=== PATIENT | female | born 1950 | race African-American/Black ===

== ENCOUNTER 2017-06-18 04:40 | Inpatient (IN) | payer MEDICARE, MEDICAID ==
[2017-06-18] VITALS (11 sets, daily range): BP systolic 119–175; BP diastolic 80–107
[~2017-06-18] VITALS: Ht 157.5 cm; Wt 23.6 kg
[~2017-06-18 04:40] MED LIST: ASPI-1158 PO; ATEN50TA; ATOR20TA65; CARV12.545 PO; CLON0.2T12 PO; CLOP75TA33; ISOS30TA6; LISI40TA4 PO
[2017-06-18] MEDS ORDERED: ALBUTEROL (0.083%) 2.5MG/3ML NEB HHN STA (04:59)
[2017-06-18] MEDS ORDERED: IPRATROPIUM BROMIDE (0.02%) 0.5MG/2.5ML NEB HHN STA (04:59)
[2017-06-18 05:30] LABS: BG BASE EXCESS -9.7 mmol/L (-2.0-2.0); BG CARBOXYHEMOGLOBIN 3.5 % (0.5-1.5); BG FRACTION INSPIRED OXYGEN 21; BG HCO3 ACT 13.4 mmol/L (22.0-26.0); BG METHEMOGLOBIN 0.4 % (0.0-1.5); BG OXYGEN SATURATION 88.6 % (92.0-98.5); BG OXYHEMOGLOBIN 85.1 % (94.0-97.0); BG PH 7.384 (7.350-7.450); BG PO2 54.8 mmHg (75.0-100.0); BG SAMPLE SITE RIGHT RADIAL; BG TOTAL HEMOGLOBIN 12.7 g/dL (12.0-18.0); BG VENT MODE ROOM AIR
[2017-06-18] MEDS ORDERED: CEFTRIAXONE 1 G PREMIX 50 ML IV ONE (05:30)
[2017-06-18] MEDS ORDERED: AZITHROMYCIN 500 MG in DEXT 5% WATER 250 ML IV ONE (05:30)
[2017-06-18 05:35] LABS: CHLORIDE 113 mEq/L (98-107); HEMATOCRIT. 37.3 % (36.0-48.0); HEMOGLOBIN. 12.6 g/dL (12.0-16.0); MEAN CORPUSCULAR VOLUME 91.9 fL (81.0-99.0); MEAN PLATELET VOLUME 9.1 fl (7.4-10.4); PLATELET 181 x1000/uL (130-400); RED BLOOD CELL COUNT 4.06 mill/uL (4.2-5.4); RED CELL DISTRIBUTION WIDTH 15.7 % (11.6-14.6)
[2017-06-18 05:36] LABS: INR 1.1; PROTHROMBIN TIME 11.1 sec (9.4-11.6)
[2017-06-18 06:47] LABS: PLATELET ESTIMATE NORMAL
[2017-06-18] MEDS ORDERED: IPRATROPIUM/ALBUTEROL 0.5-3(2.5)MG/3ML NEB HHN PRN (11:00)
[2017-06-18] MEDS ORDERED: LISINOPRIL 40MG TABLET PO SCH (11:30)
[2017-06-18] MEDS: LEVOFLOXACIN 250MG TABLET PO SCH (12:10)
[2017-06-18] MEDS: CLOPIDOGREL 75MG TABLET PO SCH (12:10)
[2017-06-18] MEDS ORDERED: LORAZEPAM 2MG/ML CPJ IV PRN (14:30)
[2017-06-18 14:51] LABS: CLARITY URINE CLEAR (CLEAR); COLOR URINE YELLOW (YELLOW); KETONES URINE NEGATIVE (NEGATIVE); LEUKOCYTE ESTERASE URINE TRACE (NEGATIVE); NITRITE URINE NEGATIVE (NEGATIVE); OCCULT BLOOD URINE NEGATIVE (NEGATIVE); PROTEIN URINE TRACE (NEGATIVE); SPECIFIC GRAVITY URINE 1.017 (1.005-1.030); UROBILINOGEN URINE 0.2 E.U./dL (0.2-1.0)
[2017-06-18 15:06] LABS: *AMPHETAMINES SCREEN URINE NEGATIVE (NEGATIVE); *BARBITURATES SCREEN URINE NEGATIVE (NEGATIVE); *BENZODIAZEPINES SCREEN URINE NEGATIVE (NEGATIVE); CANNABINOID URINE SCREEN NEGATIVE (NEGATIVE); METHADONE URINE SCREEN NEGATIVE (NEGATIVE); OPIATES URINE SCREEN NEGATIVE (NEGATIVE); PHENCYCLIDINE URINE SCREEN NEGATIVE (NEGATIVE)
[2017-06-18 15:07] LABS: *COCAINE SCREEN URINE PRESUMTIVE POSITIVE (NEGATIVE)
[2017-06-18] MEDS: FUROSEMIDE 40MG/4ML VIAL IVP SCH (15:22)
[2017-06-18] MEDS: ENOXAPARIN 40MG/0.4ML SYR SUBCUT SCH (15:22)
[2017-06-18] MEDS: MULTIVITAMINS,THER W-MINERALS TABLET PO SCH (15:23)
[2017-06-18] MEDS: THIAMINE HCL 100MG TABLET PO SCH (15:23)
[2017-06-18] MEDS: FOLIC ACID/VITAMIN B COMP W-C TABLET PO SCH (15:23)
[2017-06-18] MEDS ORDERED: ALBUMIN HUMAN 12.5G/250ML (5%) IV NR (16:00)
[2017-06-18] MEDS ORDERED: FUROSEMIDE 40MG/4ML VIAL IVP NR (16:15)
[2017-06-18] MEDS ORDERED: NICOTINE 21MG PATCH TD NR (17:00)
[2017-06-18] MEDS: ACETAMINOPHEN 325MG TABLET PO PRN (18:23)
[2017-06-18] MEDS: ATORVASTATIN CALCIUM 40MG TABLET PO SCH (20:25)
[2017-06-18] MEDS: IPRATROPIUM/ALBUTEROL 0.5-3(2.5)MG/3ML NEB HHN SCH (20:25)
[2017-06-18] MEDS: AMLODIPINE 2.5MG TABLET PO SCH (20:25)
[2017-06-18] MEDS: LISINOPRIL 10MG TABLET PO SCH (20:25)
[2017-06-18] MEDS: HYDROCODONE/ACETAMINOPHEN 5/325MG TABLET PO PRN (20:26)
[2017-06-18] MEDS: BUDESONIDE 0.5MG/2ML NEB HHN SCH (20:26)
[2017-06-19] VITALS (13 sets, daily range): BP systolic 110–189; BP diastolic 45–116
[2017-06-19] MEDS: IPRATROPIUM/ALBUTEROL 0.5-3(2.5)MG/3ML NEB HHN SCH ×4 (01:57→20:43)
[2017-06-19] MEDS: CLONIDINE 0.1MG TABLET PO PRN ×2 (02:35→11:25)
[2017-06-19 07:08] LABS: HEMATOCRIT. 39.7 % (36.0-48.0); HEMOGLOBIN. 13.1 g/dL (12.0-16.0); MEAN CORPUSCULAR HEMOGLOBIN 30.4 pg (28.0-32.0); MEAN CORPUSCULAR VOLUME 91.7 fL (81.0-99.0); MEAN PLATELET VOLUME 9.2 fl (7.4-10.4); PLATELET 164 x1000/uL (130-400); RED BLOOD CELL COUNT 4.33 mill/uL (4.2-5.4); RED CELL DISTRIBUTION WIDTH 15.9 % (11.6-14.6)
[2017-06-19] MEDS: BUDESONIDE 0.5MG/2ML NEB HHN SCH ×2 (08:16→20:47)
[2017-06-19] MEDS: FUROSEMIDE 40MG/4ML VIAL IVP SCH (08:52)
[2017-06-19] MEDS: AMLODIPINE 2.5MG TABLET PO SCH (08:53)
[2017-06-19] MEDS: THIAMINE HCL 100MG TABLET PO SCH (08:54)
[2017-06-19] MEDS: LISINOPRIL 10MG TABLET PO SCH (08:54)
[2017-06-19] MEDS: CLOPIDOGREL 75MG TABLET PO SCH (08:54)
[2017-06-19] MEDS: MULTIVITAMINS,THER W-MINERALS TABLET PO SCH (08:54)
[2017-06-19] MEDS ORDERED: FUROSEMIDE 40MG TABLET PO SCH (09:00)
[2017-06-19 09:08] LABS: PLATELET ESTIMATE NORMAL
[2017-06-19] MEDS: FOLIC ACID/VITAMIN B COMP W-C TABLET PO SCH (11:17)
[2017-06-19] MEDS: NICOTINE 21MG PATCH TD SCH (11:17)
[2017-06-19] MEDS: HYDRALAZINE HCL 25MG TABLET PO SCH ×2 (13:18→21:50)
[2017-06-19] MEDS ORDERED: HYDRALAZINE HCL 25MG TABLET PO SCH (14:00)
[2017-06-19] MEDS: ACETAMINOPHEN 325MG TABLET PO PRN (15:22)
[2017-06-19] MEDS: ENOXAPARIN 40MG/0.4ML SYR SUBCUT SCH (15:24)
[2017-06-19] MEDS: ATORVASTATIN CALCIUM 40MG TABLET PO SCH (20:39)
[2017-06-19] MEDS: AMLODIPINE 5MG TABLET PO SCH (20:39)
[2017-06-19] MEDS: LISINOPRIL 20MG TABLET PO SCH (20:39)
[2017-06-20] VITALS (15 sets, daily range): BP systolic 126–167; BP diastolic 63–117
[2017-06-20] MEDS: IPRATROPIUM/ALBUTEROL 0.5-3(2.5)MG/3ML NEB HHN SCH ×4 (02:25→20:26)
[2017-06-20] MEDS: HYDRALAZINE HCL 25MG TABLET PO SCH ×3 (05:34→20:49)
[2017-06-20 06:55] LABS: HEMATOCRIT. 43.4 % (36.0-48.0); HEMOGLOBIN. 14.8 g/dL (12.0-16.0); MEAN CORPUSCULAR VOLUME 91.1 fL (81.0-99.0); MEAN PLATELET VOLUME 9.7 fl (7.4-10.4); PLATELET 174 x1000/uL (130-400); RED BLOOD CELL COUNT 4.76 mill/uL (4.2-5.4); RED CELL DISTRIBUTION WIDTH 16.2 % (11.6-14.6)
[2017-06-20 06:59] LABS: CHLORIDE 114 mEq/L (98-107)
[2017-06-20] MEDS: BUDESONIDE 0.5MG/2ML NEB HHN SCH ×2 (07:52→20:26)
[2017-06-20] MEDS: LISINOPRIL 20MG TABLET PO SCH ×2 (08:45→20:49)
[2017-06-20] MEDS: AMLODIPINE 5MG TABLET PO SCH (08:45)
[2017-06-20] MEDS: FOLIC ACID/VITAMIN B COMP W-C TABLET PO SCH (08:45)
[2017-06-20] MEDS: MULTIVITAMINS,THER W-MINERALS TABLET PO SCH (08:45)
[2017-06-20] MEDS: THIAMINE HCL 100MG TABLET PO SCH (08:45)
[2017-06-20] MEDS: FUROSEMIDE 40MG/4ML VIAL IVP SCH (08:45)
[2017-06-20] MEDS: CLOPIDOGREL 75MG TABLET PO SCH (08:46)
[2017-06-20] MEDS: NICOTINE 21MG PATCH TD SCH (08:46)
[2017-06-20] MEDS: HYDROCODONE/ACETAMINOPHEN 5/325MG TABLET PO PRN ×3 (09:01→20:49)
[2017-06-20 10:27] LABS: PLATELET ESTIMATE NORMAL
[2017-06-20] MEDS: LEVOFLOXACIN 250MG TABLET PO SCH (11:57)
[2017-06-20] MEDS: ENOXAPARIN 30MG/0.3ML SYR SUBCUT SCH (16:48)
[2017-06-20] MEDS ORDERED: KCL 20MEQ/100ML PREMIX 100 ML IV SCH (18:00)
[2017-06-20] MEDS: CLONIDINE 0.1MG TABLET PO PRN (18:18)
[2017-06-20] MEDS: NIFEDIPINE XL 60MG TAB PO SCH (18:18)
[2017-06-20] MEDS: ATORVASTATIN CALCIUM 40MG TABLET PO SCH (20:49)
[2017-06-21] VITALS (14 sets, daily range): BP systolic 110–187; BP diastolic 37–116
[2017-06-21] MEDS: IPRATROPIUM/ALBUTEROL 0.5-3(2.5)MG/3ML NEB HHN SCH ×4 (02:11→19:31)
[2017-06-21] MEDS: HYDRALAZINE HCL 25MG TABLET PO SCH ×3 (05:59→22:00)
[2017-06-21] MEDS: CLONIDINE 0.1MG TABLET PO PRN (06:15)
[2017-06-21 07:02] LABS: HEMATOCRIT. 43.7 % (36.0-48.0); HEMOGLOBIN. 14.6 g/dL (12.0-16.0); MEAN CORPUSCULAR HEMOGLOBIN 30.8 pg (28.0-32.0); MEAN CORPUSCULAR VOLUME 91.8 fL (81.0-99.0); MEAN PLATELET VOLUME 9.7 fl (7.4-10.4); PLATELET 162 x1000/uL (130-400); RED BLOOD CELL COUNT 4.76 mill/uL (4.2-5.4); RED CELL DISTRIBUTION WIDTH 16.2 % (11.6-14.6)
[2017-06-21 07:51] LABS: CHLORIDE 115 mEq/L (98-107)
[2017-06-21 07:53] LABS: PLATELET ESTIMATE NORMAL
[2017-06-21] MEDS: BUDESONIDE 0.5MG/2ML NEB HHN SCH (07:56)
[2017-06-21] MEDS: NICOTINE 21MG PATCH TD SCH (09:02)
[2017-06-21] MEDS: THIAMINE HCL 100MG TABLET PO SCH (09:02)
[2017-06-21] MEDS: FUROSEMIDE 40MG/4ML VIAL IVP SCH (09:02)
[2017-06-21] MEDS: MULTIVITAMINS,THER W-MINERALS TABLET PO SCH (09:03)
[2017-06-21] MEDS: NIFEDIPINE XL 60MG TAB PO SCH (09:03)
[2017-06-21] MEDS: FOLIC ACID/VITAMIN B COMP W-C TABLET PO SCH (09:04)
[2017-06-21] MEDS: LISINOPRIL 20MG TABLET PO SCH ×2 (09:04→20:44)
[2017-06-21] MEDS: CLOPIDOGREL 75MG TABLET PO SCH (09:09)
[2017-06-21] MEDS: ENOXAPARIN 30MG/0.3ML SYR SUBCUT SCH (14:39)
[2017-06-21] MEDS: ATORVASTATIN CALCIUM 40MG TABLET PO SCH (20:44)
[2017-06-21] MEDS: HYDROCODONE/ACETAMINOPHEN 5/325MG TABLET PO PRN (21:27)
[2017-06-22] VITALS (12 sets, daily range): BP systolic 106–155; BP diastolic 71–96
[2017-06-22] MEDS: CLONIDINE 0.1MG TABLET PO PRN (00:39)
[2017-06-22] MEDS: IPRATROPIUM/ALBUTEROL 0.5-3(2.5)MG/3ML NEB HHN SCH ×4 (02:04→20:58)
[2017-06-22] MEDS: HYDRALAZINE HCL 25MG TABLET PO SCH ×3 (05:43→22:03)
[2017-06-22] MEDS: MULTIVITAMINS,THER W-MINERALS TABLET PO SCH (10:32)
[2017-06-22] MEDS: THIAMINE HCL 100MG TABLET PO SCH (10:32)
[2017-06-22] MEDS: FOLIC ACID/VITAMIN B COMP W-C TABLET PO SCH (10:32)
[2017-06-22] MEDS: NICOTINE 21MG PATCH TD SCH (10:32)
[2017-06-22] MEDS: CLOPIDOGREL 75MG TABLET PO SCH (10:32)
[2017-06-22] MEDS: NIFEDIPINE XL 60MG TAB PO SCH (10:55)
[2017-06-22] MEDS: FUROSEMIDE 40MG/4ML VIAL IVP SCH (10:55)
[2017-06-22] MEDS: LISINOPRIL 20MG TABLET PO SCH ×2 (10:56→21:25)
[2017-06-22] MEDS: LEVOFLOXACIN 250MG TABLET PO SCH (11:29)
[2017-06-22] MEDS: HYDROCODONE/ACETAMINOPHEN 5/325MG TABLET PO PRN ×2 (13:32→21:30)
[2017-06-22] MEDS: ENOXAPARIN 30MG/0.3ML SYR SUBCUT SCH (15:28)
[2017-06-22] MEDS: ATORVASTATIN CALCIUM 40MG TABLET PO SCH (21:55)
[2017-06-23] VITALS (12 sets, daily range): BP systolic 97–148; BP diastolic 57–117
[2017-06-23] MEDS: IPRATROPIUM/ALBUTEROL 0.5-3(2.5)MG/3ML NEB HHN SCH ×3 (01:47→13:48)
[2017-06-23] MEDS: HYDRALAZINE HCL 25MG TABLET PO SCH ×2 (06:38→06:39)
[2017-06-23 06:45] LABS: HEMATOCRIT 46.5 % (36.0-48.0); HEMOGLOBIN 15.7 g/dL (12.0-16.0); MEAN CORPUSCULAR VOLUME 91.7 fL (81.0-99.0); PLATELET 148 x1000/uL (130-400); RED BLOOD CELL COUNT 5.07 mill/uL (4.2-5.4); RED CELL DISTRIBUTION WIDTH 16.2 % (11.6-14.6)
[2017-06-23] MEDS: NIFEDIPINE XL 60MG TAB PO SCH (08:33)
[2017-06-23] MEDS: CLOPIDOGREL 75MG TABLET PO SCH (08:33)
[2017-06-23] MEDS: FOLIC ACID/VITAMIN B COMP W-C TABLET PO SCH (08:33)
[2017-06-23] MEDS: THIAMINE HCL 100MG TABLET PO SCH (08:33)
[2017-06-23] MEDS: MULTIVITAMINS,THER W-MINERALS TABLET PO SCH (08:33)
[2017-06-23] MEDS: LISINOPRIL 20MG TABLET PO SCH (08:33)
[2017-06-23] MEDS: HYDROCODONE/ACETAMINOPHEN 5/325MG TABLET PO PRN (08:34)
[2017-06-23] MEDS: NICOTINE 21MG PATCH TD SCH (08:38)
[2017-06-23] MEDS ORDERED: FUROSEMIDE 20MG TABLET PO SCH (09:00)
[2017-06-23] MEDS: ENOXAPARIN 30MG/0.3ML SYR SUBCUT SCH (14:21)
[2017-06-23] MEDS: ACETAMINOPHEN 325MG TABLET PO PRN (14:22)
== END 2017-06-23 17:50 | disposition home health service (06) | DRG 291 ==
LOC: ER 04:40 → 5EST 06:03 → ENRESERV 07:37 → 5EST 18:28
PROVIDERS: ADMIT Internal Medicine; ATTEND Internal Medicine
DX: I11.0 Hypertensive heart disease with heart failure (principal); J96.01 Acute respiratory failure with hypoxia; E44.0 Moderate protein-calorie malnutrition; J18.9 Pneumonia, unspecified organism; I42.0 Dilated cardiomyopathy; D72.1 Eosinophilia; J44.1 Chronic obstructive pulmonary disease with (acute) exacerbation; N39.0 Urinary tract infection, site not specified; J44.0 Chronic obstructive pulmonary disease with (acute) lower respiratory infection; Z68.1 Body mass index [BMI] 19.9 or less, adult; F14.10 Cocaine abuse, uncomplicated; F17.210 Nicotine dependence, cigarettes, uncomplicated; I50.43 Acute on chronic combined systolic (congestive) and diastolic (congestive) heart failure; Z86.73 Personal history of transient ischemic attack (TIA), and cerebral infarction without residual deficits; Z91.19 Patient's noncompliance with other medical treatment and regimen; Z95.810 Presence of automatic (implantable) cardiac defibrillator; Z79.82 Long term (current) use of aspirin; Z79.899 Other long term (current) drug therapy; Z72.89 Other problems related to lifestyle
CPT/HCPCS: 36415; 36600; 71045; 80048; 80053; 80305; 81003; 82375; 82805; 83036; 83605; 83735; 83880; 84484; 85025; 85027; 85610; 87040; 87804; 93005; 93306; 94640; 96365; 96368; 97116; 97163; 99291; J0456; J0696; J1650; J1940; J3480; J7050; J7060; J7611; J7620; J7626; P9041

== ENCOUNTER 2018-04-15 14:28 | Inpatient (IN) | payer MEDICARE, MEDICAID ==
[~2018-04-15] VITALS: Ht 162.6 cm; Wt 48.1 kg
[2018-04-15] MEDS ORDERED: IPRATROPIUM BROMIDE (0.02%) 0.5MG/2.5ML NEB HHN STA (14:34)
[2018-04-15] MEDS ORDERED: ALBUTEROL (0.083%) 2.5MG/3ML NEB HHN STA (14:34)
[2018-04-15] MEDS ORDERED: METHYLPREDNISOLONE SOD SUCC 125 MG/2 ML VIAL IV STA (14:34)
[2018-04-15 15:00] LABS: BASOPHILS % 0.6 % (0.0-2.0); EOSINOPHILS % 0.9 % (0.0-5.0); HEMATOCRIT. 44.1 % (36.0-48.0); HEMOGLOBIN. 14.1 g/dL (12.0-16.0); LYMPHOCYTES % 34.6 % (20.0-50.0); MEAN CORPUSCULAR HEMOGLOBIN 30.7 pg (28.0-32.0); MEAN PLATELET VOLUME 10.5 fl (7.4-10.4); MONOCYTES % 6.5 % (2.0-8.0); NEUTROPHILS % 57.4 % (40.0-76.0); PLATELET 161 x1000/uL (130-400); RED BLOOD CELL COUNT 4.59 mill/uL (4.2-5.4); RED CELL DISTRIBUTION WIDTH 19.2 % (11.6-14.6)
[2018-04-15 15:08] LABS: CHLORIDE 119 mEq/L (98-107)
[2018-04-15 15:17] LABS: BG BASE EXCESS -8.8 mmol/L (-2.0-2.0); BG DEOXYHEMOGLOBIN 2.5 % (0.0-5.0); BG FRACTION INSPIRED OXYGEN 50; BG HCO3 ACT 15.7 mmol/L (22.0-26.0); BG METHEMOGLOBIN 0.4 % (0.0-1.5); BG OXYGEN SATURATION 97.5 % (92.0-98.5); BG OXYHEMOGLOBIN 96.1 % (94.0-97.0); BG PCO2 30.3 mmHg (35.0-45.0); BG PH 7.333 (7.350-7.450); BG PO2 109.4 mmHg (75.0-100.0); BG SAMPLE SITE RIGHT RADIAL; BG TOTAL HEMOGLOBIN 13.9 g/dL (12.0-18.0)
[2018-04-15] MEDS ORDERED: FUROSEMIDE 40MG/4ML VIAL IV ONE (15:30)
[2018-04-15] MEDS ORDERED: ASPIRIN 81MG TABLET PO ONE (15:30)
[2018-04-15] MEDS ORDERED: DIPHENHYDRAMINE 50MG/ML VIAL IV PRN (18:00)
[2018-04-15] MEDS ORDERED: HYDROCODONE/ACETAMINOPHEN 5/325MG TABLET PO PRN (18:00)
[2018-04-15] MEDS ORDERED: NA PHOS,M-B/NA PHOS,DI-BA ENEMA 118ML PR PRN (18:00)
[2018-04-15] MEDS ORDERED: ACETAMINOPHEN 325MG TABLET PO PRN (18:00)
[2018-04-15] MEDS ORDERED: ACETAMINOPHEN 650MG SUPP PR PRN (18:00)
[2018-04-15] MEDS ORDERED: DOCUSATE SODIUM 100MG CAPSULE PO PRN (18:00)
[2018-04-15] MEDS ORDERED: ONDANSETRON HCL 4MG/2ML INJ IV PRN (18:00)
[2018-04-15] MEDS ORDERED: LORAZEPAM 0.5MG TABLET PO PRN (18:00)
[2018-04-15] MEDS ORDERED: AMLODIPINE 5MG TABLET PO SCH (18:00)
[2018-04-15] MEDS ORDERED: IPRATROPIUM/ALBUTEROL 0.5-3(2.5)MG/3ML NEB INH PRN (18:00)
[2018-04-15] MEDS ORDERED: GUAIFENESIN 200MG/10ML SUGAR FREE UDC PO PRN (18:00)
[2018-04-15] MEDS ORDERED: MAGNESIUM/ALUMINUM HYDROXIDE/SIMETHICONE 30ML UDC PO PRN (18:00)
[2018-04-15] MEDS ORDERED: CLONIDINE 0.1MG TABLET PO PRN (18:00)
[2018-04-15 20:00] VITALS: BP 164/108
[2018-04-15] MEDS: CARVEDILOL 12.5MG TABLET PO SCH (20:17)
[2018-04-15] MEDS: METHYLPREDNISOLONE SOD SUCC 40 MG/ML VIAL IV SCH (20:18)
[2018-04-15] MEDS: ENOXAPARIN 40MG/0.4ML SYR SUBCUT SCH (20:18)
[2018-04-15] MEDS ORDERED: LEVOFLOXACIN 500MG PREMIX 100 ML IV SCH (21:00)
[2018-04-15] MEDS: IPRATROPIUM/ALBUTEROL 0.5-3(2.5)MG/3ML NEB INH SCH (21:28)
[2018-04-16] VITALS: BP 165/105
[2018-04-16] MEDS: IPRATROPIUM/ALBUTEROL 0.5-3(2.5)MG/3ML NEB INH SCH ×6 (01:13→21:38)
[2018-04-16 03:10] LABS: CLARITY URINE CLOUDY (CLEAR); COLOR URINE YELLOW (YELLOW); KETONES URINE NEGATIVE (NEGATIVE); LEUKOCYTE ESTERASE URINE TRACE (NEGATIVE); NITRITE URINE NEGATIVE (NEGATIVE); OCCULT BLOOD URINE 3+ (NEGATIVE); PROTEIN URINE 1+ (NEGATIVE); SPECIFIC GRAVITY URINE 1.015 (1.005-1.030); UROBILINOGEN URINE 0.2 E.U./dL (0.2-1.0)
[2018-04-16 03:11] LABS: *AMPHETAMINES SCREEN URINE NEGATIVE (NEGATIVE); *BARBITURATES SCREEN URINE NEGATIVE (NEGATIVE); *BENZODIAZEPINES SCREEN URINE NEGATIVE (NEGATIVE); *COCAINE SCREEN URINE PRESUMTIVE POSITIVE (NEGATIVE); METHADONE URINE SCREEN NEGATIVE (NEGATIVE); OPIATES URINE SCREEN NEGATIVE (NEGATIVE); PHENCYCLIDINE URINE SCREEN NEGATIVE (NEGATIVE)
[2018-04-16 03:12] LABS: CANNABINOID URINE SCREEN NEGATIVE (NEGATIVE)
[2018-04-16 04:00] VITALS: BP 143/102
[2018-04-16] MEDS: METHYLPREDNISOLONE SOD SUCC 40 MG/ML VIAL IV SCH ×3 (05:19→21:50)
[2018-04-16 07:59] LABS: BASOPHILS % 0.6 % (0.0-2.0); HEMATOCRIT. 42.1 % (36.0-48.0); HEMOGLOBIN. 13.5 g/dL (12.0-16.0); LYMPHOCYTES % 27.5 % (20.0-50.0); MEAN CORPUSCULAR HEMOGLOBIN 30.4 pg (28.0-32.0); MEAN CORPUSCULAR VOLUME 94.9 fL (81.0-99.0); MEAN PLATELET VOLUME 10.7 fl (7.4-10.4); MONOCYTES % 8.1 % (2.0-8.0); NEUTROPHILS % 63.8 % (40.0-76.0); PLATELET 141 x1000/uL (130-400); RED BLOOD CELL COUNT 4.43 mill/uL (4.2-5.4); RED CELL DISTRIBUTION WIDTH 18.5 % (11.6-14.6)
[2018-04-16 08:00] VITALS: BP 139/100
[2018-04-16 08:06] LABS: CHLORIDE 120 mEq/L (98-107)
[2018-04-16 08:14] LABS: LDL CHOLESTEROL 83 mg/dL (5-100)
[2018-04-16 08:16] LABS: HDL CHOLESTEROL 53 mg/dL (40-59); T4 FREE 1.62 ng/dL (0.76-1.46)
[2018-04-16] MEDS ORDERED: FUROSEMIDE 40MG/4ML VIAL IV SCH (09:00)
[2018-04-16] MEDS: CLOPIDOGREL 75MG TABLET PO SCH (09:46)
[2018-04-16] MEDS: CARVEDILOL 12.5MG TABLET PO SCH ×2 (09:46→21:49)
[2018-04-16] MEDS: ASPIRIN 81MG EC TABLET PO SCH (09:46)
[2018-04-16] MEDS: AMLODIPINE 10MG TABLET PO SCH (09:47)
[2018-04-16 12:00] VITALS: BP 122/86
[2018-04-16] MEDS: DEXTROSE 5% WATER 1,000 ML IV SCH (14:57)
[2018-04-16 16:00] VITALS: BP 123/96
[2018-04-16 20:30] VITALS: BP 140/102
[2018-04-16] MEDS ORDERED: LEVOFLOXACIN 250MG PREMIX 50 ML IV SCH (21:00)
[2018-04-16] MEDS: CLONIDINE 0.2MG TABLET PO PRN ×2 (21:49)
[2018-04-16] MEDS: ENOXAPARIN 40MG/0.4ML SYR SUBCUT SCH (21:49)
[2018-04-17 00:47] VITALS: BP 125/94
[2018-04-17] MEDS: DEXTROSE 5% WATER 1,000 ML IV SCH (01:05)
[2018-04-17] MEDS: IPRATROPIUM/ALBUTEROL 0.5-3(2.5)MG/3ML NEB INH SCH ×2 (02:10→10:40)
[2018-04-17 04:51] VITALS: BP 117/90
[2018-04-17] MEDS: METHYLPREDNISOLONE SOD SUCC 40 MG/ML VIAL IV SCH ×2 (05:57→13:47)
[2018-04-17 07:26] LABS: HEMATOCRIT 40.8 % (36.0-48.0); HEMOGLOBIN 13.3 g/dL (12.0-16.0); MEAN CORPUSCULAR VOLUME 95.3 fL (81.0-99.0); PLATELET 122 x1000/uL (130-400); RED BLOOD CELL COUNT 4.29 mill/uL (4.2-5.4); RED CELL DISTRIBUTION WIDTH 18.2 % (11.6-14.6)
[2018-04-17 08:00] VITALS: BP 91/73
[2018-04-17] MEDS: AMLODIPINE 10MG TABLET PO SCH (09:00)
[2018-04-17] MEDS: CARVEDILOL 12.5MG TABLET PO SCH (09:09)
[2018-04-17] MEDS: CLOPIDOGREL 75MG TABLET PO SCH (09:09)
[2018-04-17] MEDS: ASPIRIN 81MG EC TABLET PO SCH (09:09)
[2018-04-17 12:00] VITALS: BP 128/94
[2018-04-17 15:08] VITALS: BP 117/65
[2018-04-17] MEDS ORDERED: ENOXAPARIN 30MG/0.3ML SYR SUBCUT SCH (21:00)
== END 2018-04-17 16:00 | disposition home health service (06) | DRG 291 ==
LOC: ER 14:28 → ENRESERV 15:28 → 5WST 15:33 → EDBEDREQSVC 15:35 → EDBEDREQ 15:35 → EDBEDREQTM 15:35 → EDBEDREQ 15:36
PROVIDERS: ADMIT Internal Medicine; ATTEND Internal Medicine
DX: I11.0 Hypertensive heart disease with heart failure (principal); J18.9 Pneumonia, unspecified organism; J44.0 Chronic obstructive pulmonary disease with (acute) lower respiratory infection; N39.0 Urinary tract infection, site not specified; J44.1 Chronic obstructive pulmonary disease with (acute) exacerbation; J11.1 Influenza due to unidentified influenza virus with other respiratory manifestations; I50.43 Acute on chronic combined systolic (congestive) and diastolic (congestive) heart failure; E87.5 Hyperkalemia; F17.210 Nicotine dependence, cigarettes, uncomplicated; E86.0 Dehydration; R26.9 Unspecified abnormalities of gait and mobility; Z86.73 Personal history of transient ischemic attack (TIA), and cerebral infarction without residual deficits; Z95.810 Presence of automatic (implantable) cardiac defibrillator; Z99.81 Dependence on supplemental oxygen
CPT/HCPCS: 36415; 36600; 71045; 80048; 80061; 80305; 82375; 82805; 83880; 84439; 84443; 84484; 85027; 87804; 93005; 93306; 93970; 94640; 96374; 96375; 97162; 99291; J1650; J1940; J1956; J2920; J2930; J7050; J7070; J7611; J7620; A4315

== ENCOUNTER 2019-06-15 06:37 | Inpatient (IN) | payer MEDICARE, MEDICAID ==
[~2019-06-15] VITALS: Ht 165.1 cm; Wt 48.6 kg
[2019-06-15] MEDS ORDERED: IPRATROPIUM BROMIDE (0.02%) 0.5MG/2.5ML NEB HHN STA (06:50)
[2019-06-15] MEDS ORDERED: METHYLPREDNISOLONE SOD SUCC 125 MG/2 ML VIAL IV STA (06:50)
[2019-06-15] MEDS ORDERED: ALBUTEROL (0.083%) 2.5MG/3ML NEB HHN STA (06:50)
[2019-06-15 07:19] LABS: BASOPHILS % 1.7 % (0.0-2.0); EOSINOPHILS % 1.8 % (0.0-5.0); HEMATOCRIT. 38.6 % (36.0-48.0); HEMOGLOBIN. 11.9 g/dL (12.0-16.0); MEAN CORPUSCULAR HEMOGLOBIN 25.8 pg (28.0-32.0); MEAN CORPUSCULAR VOLUME 84.1 fL (81.0-99.0); MEAN PLATELET VOLUME 10.4 fl (7.4-10.4); MONOCYTES % 12.2 % (2.0-8.0); NEUTROPHILS % 54.3 % (40.0-76.0); PLATELET 208 x1000/uL (130-400); RED BLOOD CELL COUNT 4.59 mill/uL (4.2-5.4); RED CELL DISTRIBUTION WIDTH 21.2 % (11.6-14.6)
[2019-06-15 07:24] LABS: CHLORIDE 111 mEq/L (98-107)
[2019-06-15] MEDS ORDERED: LEVOFLOXACIN 750MG PREMIX 150 ML IV ONE (08:15)
[2019-06-15 09:00] LABS: BG BASE EXCESS -6.5 mmol/L (-2.0-2.0); BG CARBOXYHEMOGLOBIN 0.4 % (0.5-1.5); BG DEOXYHEMOGLOBIN 5.1 % (0.0-5.0); BG FRACTION INSPIRED OXYGEN 21; BG HCO3 ACT 17.1 mmol/L (22.0-26.0); BG METHEMOGLOBIN 0.4 % (0.0-1.5); BG OXYGEN SATURATION 94.9 % (92.0-98.5); BG OXYHEMOGLOBIN 94.1 % (94.0-97.0); BG PCO2 28.3 mmHg (35.0-45.0); BG PH 7.398 (7.350-7.450); BG PO2 78.7 mmHg (75.0-100.0); BG SAMPLE SITE RIGHT RADIAL; BG TOTAL HEMOGLOBIN 11.8 g/dL (12.0-18.0); BG VENT MODE ROOM AIR
[2019-06-15] MEDS ORDERED: NA PHOS,M-B/NA PHOS,DI-BA ENEMA 118ML PR PRN (11:30)
[2019-06-15] MEDS ORDERED: LORAZEPAM 0.5MG TABLET PO PRN (11:30)
[2019-06-15] MEDS ORDERED: ONDANSETRON HCL 4MG/2ML INJ IV PRN (11:30)
[2019-06-15] MEDS ORDERED: DOCUSATE SODIUM 100MG CAPSULE PO PRN (11:30)
[2019-06-15] MEDS ORDERED: HYDROCODONE/ACETAMINOPHEN 5/325MG TABLET PO PRN (11:30)
[2019-06-15] MEDS ORDERED: DIPHENHYDRAMINE 50MG/ML VIAL IV PRN (11:30)
[2019-06-15] MEDS ORDERED: ACETAMINOPHEN 325MG TABLET PO PRN (11:30)
[2019-06-15] MEDS ORDERED: IPRATROPIUM/ALBUTEROL 0.5-3(2.5)MG/3ML NEB NEB SCH (11:30)
[2019-06-15] MEDS ORDERED: IPRATROPIUM/ALBUTEROL 0.5-3(2.5)MG/3ML NEB NEB PRN (11:30)
[2019-06-15] MEDS ORDERED: GUAIFENESIN 200MG/10ML SUGAR FREE UDC PO PRN (11:30)
[2019-06-15] MEDS ORDERED: ACETAMINOPHEN 650MG SUPP PR PRN (11:30)
[2019-06-15] MEDS ORDERED: AZTREONAM 500 MG in DEXTROSE 5% WATER 50 ML IV SCH ×2 (11:45→20:00)
[2019-06-15 12:28] LABS: D-DIMER 0.99 mg/L FEU (<0.50)
[2019-06-15 12:50] LABS: HEPATITIS B SURFACE ANTIGEN NEGATIVE
[2019-06-15 13:20] LABS: HEPATITIS A AB IGM NEGATIVE (NEGATIVE)
[2019-06-15 13:42] LABS: CLARITY URINE CLEAR (CLEAR); COLOR URINE YELLOW (YELLOW); KETONES URINE NEGATIVE (NEGATIVE); LEUKOCYTE ESTERASE URINE TRACE (NEGATIVE); NITRITE URINE NEGATIVE (NEGATIVE); OCCULT BLOOD URINE NEGATIVE (NEGATIVE); PH URINE 5.5 (4.5-8.0); PROTEIN URINE TRACE (NEGATIVE); UROBILINOGEN URINE 0.2 E.U./dL (0.2-1.0)
[2019-06-15 14:23] LABS: *AMPHETAMINES SCREEN URINE NEGATIVE (NEGATIVE); *BARBITURATES SCREEN URINE NEGATIVE (NEGATIVE); CANNABINOID URINE SCREEN NEGATIVE (NEGATIVE); METHADONE URINE SCREEN NEGATIVE (NEGATIVE); OPIATES URINE SCREEN NEGATIVE (NEGATIVE); PHENCYCLIDINE URINE SCREEN NEGATIVE (NEGATIVE)
[2019-06-15 14:24] LABS: *BENZODIAZEPINES SCREEN URINE NEGATIVE (NEGATIVE); *COCAINE SCREEN URINE NEGATIVE (NEGATIVE)
[2019-06-15] MEDS ORDERED: METRONIDAZOLE 500MG TABLET PO SCH ×2 (14:30→22:00)
[2019-06-15 18:02] VITALS: BP 156/120
[2019-06-15 18:34] LABS: BG BASE EXCESS -6.6 mmol/L (-2.0-2.0); BG CARBOXYHEMOGLOBIN 0.5 % (0.5-1.5); BG DEOXYHEMOGLOBIN 3.4 % (0.0-5.0); BG FRACTION INSPIRED OXYGEN 28; BG HCO3 ACT 16.9 mmol/L (22.0-26.0); BG METHEMOGLOBIN 0.3 % (0.0-1.5); BG OXYGEN SATURATION 96.6 % (92.0-98.5); BG OXYHEMOGLOBIN 95.8 % (94.0-97.0); BG PCO2 28.3 mmHg (35.0-45.0); BG PH 7.395 (7.350-7.450); BG PO2 89.3 mmHg (75.0-100.0); BG SAMPLE SITE RIGHT RADIAL; BG TOTAL HEMOGLOBIN 12.4 g/dL (12.0-18.0); BG VENT MODE NASAL CANNULA
[2019-06-15] MEDS ORDERED: CEFTRIAXONE 1 G PREMIX 50 ML IV SCH (20:00)
[2019-06-15] MEDS: ENOXAPARIN 40MG/0.4ML SYR SUBCUT SCH ×2 (20:17→23:51)
[2019-06-15] MEDS: FAMOTIDINE 20MG TABLET PO SCH ×2 (20:17→23:51)
[2019-06-15 21:59] VITALS: BP 154/118
[2019-06-15] MEDS: METRONIDAZOLE 500MG TABLET PO SCH (23:56)
[2019-06-16] VITALS (43 sets, daily range): BP systolic 92–188; BP diastolic 62–134
[2019-06-16 00:29] LABS: CREATINE KINASE MB FRACTION 3.4 ng/mL (0.5-3.6)
[2019-06-16] MEDS: METRONIDAZOLE 500MG TABLET PO SCH ×3 (06:00→21:11)
[2019-06-16] MEDS ORDERED: NOREPINEPHRINE 8 MG in DEXT 5% WATER 242 ML IV PRN (14:00)
[2019-06-16] MEDS ORDERED: PIPERACILLIN/TAZOBACTAM 3.375 G in DEXT 5% WATER 100 ML IV SCH (15:30)
[2019-06-16 15:42] LABS: BG BASE EXCESS -9.1 mmol/L (-2.0-2.0); BG CARBOXYHEMOGLOBIN 0.3 % (0.5-1.5); BG DEOXYHEMOGLOBIN 0.3 % (0.0-5.0); BG FRACTION INSPIRED OXYGEN 100; BG HCO3 ACT 17.4 mmol/L (22.0-26.0); BG METHEMOGLOBIN 0.3 % (0.0-1.5); BG OXYGEN SATURATION 99.7 % (92.0-98.5); BG OXYHEMOGLOBIN 99.1 % (94.0-97.0); BG PCO2 40.1 mmHg (35.0-45.0); BG PH 7.256 (7.350-7.450); BG PO2 367.8 mmHg (75.0-100.0); BG SAMPLE SITE RIGHT BRACHIAL; BG TIDAL VOLUME(mL) 450 mL; BG TOTAL HEMOGLOBIN 12.2 g/dL (12.0-18.0); BG VENT MODE VENT - A/C; BG VENT RATE 16 set
[2019-06-16] MEDS ORDERED: SODIUM BICARBONATE 8.4% 1 MEQ/ML 50ML SYR IV ONE (16:00)
[2019-06-16] MEDS: METHYLPREDNISOLONE SOD SUCC 40 MG/ML VIAL IV SCH (16:00)
[2019-06-16] MEDS ORDERED: VANCOMYCIN 500 MG PREMIX 100 ML IV SCH ×2 (16:00→20:00)
[2019-06-16] MEDS: PROPOFOL 10MG/ML 100ML 100 ML IV PRN ×2 (16:35→19:21)
[2019-06-16 17:43] LABS: BG BASE EXCESS -4.6 mmol/L (-2.0-2.0); BG CARBOXYHEMOGLOBIN 0.3 % (0.5-1.5); BG FRACTION INSPIRED OXYGEN 70; BG HCO3 ACT 20.7 mmol/L (22.0-26.0); BG METHEMOGLOBIN 0.6 % (0.0-1.5); BG OXYHEMOGLOBIN 98.1 % (94.0-97.0); BG PCO2 38.8 mmHg (35.0-45.0); BG PH 7.345 (7.350-7.450); BG PO2 217.1 mmHg (75.0-100.0); BG SAMPLE SITE RIGHT BRACHIAL; BG TIDAL VOLUME(mL) 450 mL; BG TOTAL HEMOGLOBIN 11.5 g/dL (12.0-18.0); BG VENT MODE VENT - A/C; BG VENT RATE 16 set
[2019-06-16] MEDS: PIPERACILLIN/TAZOBACTAM 3.375 G in DEXT 5% WATER 100 ML IV SCH (21:11)
[2019-06-16 23:17] LABS: BASOPHILS % 0.2 % (0.0-2.0); HEMATOCRIT. 35.3 % (36.0-48.0); HEMOGLOBIN. 11.1 g/dL (12.0-16.0); LYMPHOCYTES % 7.4 % (20.0-50.0); MEAN CORPUSCULAR HEMOGLOBIN 25.9 pg (28.0-32.0); MEAN CORPUSCULAR VOLUME 82.6 fL (81.0-99.0); MEAN PLATELET VOLUME 10.1 fl (7.4-10.4); MONOCYTES % 4.4 % (2.0-8.0); PLATELET 180 x1000/uL (130-400); RED BLOOD CELL COUNT 4.27 mill/uL (4.2-5.4); RED CELL DISTRIBUTION WIDTH 21.2 % (11.6-14.6)
[2019-06-16 23:29] LABS: CHLORIDE 112 mEq/L (98-107)
[2019-06-16 23:31] LABS: INR 1.1
[2019-06-17] VITALS (69 sets, daily range): BP systolic 90–155; BP diastolic 64–123
[2019-06-17] MEDS: METHYLPREDNISOLONE SOD SUCC 40 MG/ML VIAL IV SCH ×2 (02:00→14:00)
[2019-06-17] MEDS: PROPOFOL 10MG/ML 100ML 100 ML IV PRN ×3 (02:20→22:41)
[2019-06-17] MEDS: PIPERACILLIN/TAZOBACTAM 3.375 G in DEXT 5% WATER 100 ML IV SCH (05:46)
[2019-06-17] MEDS: METRONIDAZOLE 500MG TABLET PO SCH ×3 (05:46→22:30)
[2019-06-17 05:50] LABS: BASOPHILS % 0.1 % (0.0-2.0); HEMATOCRIT. 35.6 % (36.0-48.0); HEMOGLOBIN. 11.2 g/dL (12.0-16.0); LYMPHOCYTES % 11.3 % (20.0-50.0); MEAN CORPUSCULAR HEMOGLOBIN 25.7 pg (28.0-32.0); MEAN CORPUSCULAR VOLUME 82.1 fL (81.0-99.0); MEAN PLATELET VOLUME 10.2 fl (7.4-10.4); MONOCYTES % 4.3 % (2.0-8.0); NEUTROPHILS % 84.3 % (40.0-76.0); PLATELET 183 x1000/uL (130-400); RED BLOOD CELL COUNT 4.34 mill/uL (4.2-5.4); RED CELL DISTRIBUTION WIDTH 21.4 % (11.6-14.6)
[2019-06-17 05:56] LABS: CHLORIDE 111 mEq/L (98-107)
[2019-06-17] MEDS: CLONIDINE 0.1MG TABLET PO PRN (06:18)
[2019-06-17 08:39] LABS: BG BASE EXCESS -3.8 mmol/L (-2.0-2.0); BG CARBOXYHEMOGLOBIN 0.1 % (0.5-1.5); BG DEOXYHEMOGLOBIN 0.5 % (0.0-5.0); BG FRACTION INSPIRED OXYGEN 70; BG HCO3 ACT 18.9 mmol/L (22.0-26.0); BG METHEMOGLOBIN 0.5 % (0.0-1.5); BG OXYGEN SATURATION 99.5 % (92.0-98.5); BG OXYHEMOGLOBIN 98.9 % (94.0-97.0); BG PCO2 27.5 mmHg (35.0-45.0); BG PH 7.456 (7.350-7.450); BG PO2 194.4 mmHg (75.0-100.0); BG SAMPLE SITE RIGHT BRACHIAL; BG TIDAL VOLUME(mL) 450 mL; BG TOTAL HEMOGLOBIN 11.4 g/dL (12.0-18.0); BG VENT MODE VENT - A/C; BG VENT RATE 16 set
[2019-06-17] MEDS: PIPERACILLIN/TAZOBACTAM 2.25 G in DEXTROSE 5% WATER 50 ML IV SCH ×3 (13:00→23:14)
[2019-06-17 13:19] LABS: BG BASE EXCESS -4.2 mmol/L (-2.0-2.0); BG CARBOXYHEMOGLOBIN 0.3 % (0.5-1.5); BG DEOXYHEMOGLOBIN 1.1 % (0.0-5.0); BG FRACTION INSPIRED OXYGEN 60; BG HCO3 ACT 18.5 mmol/L (22.0-26.0); BG METHEMOGLOBIN 0.5 % (0.0-1.5); BG OXYGEN SATURATION 98.9 % (92.0-98.5); BG OXYHEMOGLOBIN 98.1 % (94.0-97.0); BG PCO2 27.6 mmHg (35.0-45.0); BG PH 7.443 (7.350-7.450); BG PO2 164.4 mmHg (75.0-100.0); BG SAMPLE SITE RIGHT BRACHIAL; BG TIDAL VOLUME(mL) 450 mL; BG TOTAL HEMOGLOBIN 13.2 g/dL (12.0-18.0); BG VENT MODE VENT - A/C; BG VENT RATE 14 set
[2019-06-17] MEDS: FUROSEMIDE 40MG/4ML VIAL IVP SCH ×2 (14:30→17:22)
[2019-06-17 16:23] LABS: CREATINE KINASE MB FRACTION 1.3 ng/mL (0.5-3.6)
[2019-06-17] MEDS: VANCOMYCIN 750 MG PREMIX 150 ML IV SCH (17:22)
[2019-06-17] MEDS ORDERED: POTASSIUM CHLORIDE 20MEQ/PACKET PO NR (19:51)
[2019-06-17] MEDS: IPRATROPIUM/ALBUTEROL 0.5-3(2.5)MG/3ML NEB NEB SCH (20:30)
[2019-06-17] MEDS: ENOXAPARIN 30MG/0.3ML SYR SUBCUT SCH (21:21)
[2019-06-17] MEDS: FAMOTIDINE 20MG TABLET PO SCH (21:21)
[2019-06-18] VITALS (45 sets, daily range): BP systolic 85–153; BP diastolic 53–121
[2019-06-18] MEDS: CLONIDINE 0.1MG TABLET PO PRN ×3 (00:27→19:55)
[2019-06-18] MEDS: METHYLPREDNISOLONE SOD SUCC 40 MG/ML VIAL IV SCH ×2 (01:30→14:05)
[2019-06-18] MEDS: IPRATROPIUM/ALBUTEROL 0.5-3(2.5)MG/3ML NEB NEB SCH ×4 (02:25→20:32)
[2019-06-18] MEDS: METRONIDAZOLE 500MG TABLET PO SCH ×3 (05:30→21:03)
[2019-06-18] MEDS: PIPERACILLIN/TAZOBACTAM 2.25 G in DEXTROSE 5% WATER 50 ML IV SCH ×4 (05:30→23:08)
[2019-06-18] MEDS: PROPOFOL 10MG/ML 100ML 100 ML IV PRN ×2 (05:31→18:48)
[2019-06-18 07:18] LABS: BASOPHILS % 0.4 % (0.0-2.0); HEMATOCRIT. 39.1 % (36.0-48.0); HEMOGLOBIN. 12.1 g/dL (12.0-16.0); LYMPHOCYTES % 8.7 % (20.0-50.0); MEAN CORPUSCULAR HEMOGLOBIN 25.5 pg (28.0-32.0); MEAN PLATELET VOLUME 10.1 fl (7.4-10.4); MONOCYTES % 4.3 % (2.0-8.0); NEUTROPHILS % 86.6 % (40.0-76.0); PLATELET 182 x1000/uL (130-400); RED BLOOD CELL COUNT 4.76 mill/uL (4.2-5.4); RED CELL DISTRIBUTION WIDTH 21.8 % (11.6-14.6)
[2019-06-18 09:14] LABS: BG BASE EXCESS -4.5 mmol/L (-2.0-2.0); BG CARBOXYHEMOGLOBIN 0.4 % (0.5-1.5); BG DEOXYHEMOGLOBIN 2.9 % (0.0-5.0); BG FRACTION INSPIRED OXYGEN 60; BG HCO3 ACT 18.5 mmol/L (22.0-26.0); BG METHEMOGLOBIN 0.4 % (0.0-1.5); BG OXYGEN SATURATION 97.1 % (92.0-98.5); BG OXYHEMOGLOBIN 96.3 % (94.0-97.0); BG PCO2 28.8 mmHg (35.0-45.0); BG PH 7.426 (7.350-7.450); BG PO2 93.7 mmHg (75.0-100.0); BG SAMPLE SITE LEFT BRACHIAL; BG TIDAL VOLUME(mL) 450 mL; BG TOTAL HEMOGLOBIN 13.3 g/dL (12.0-18.0); BG VENT MODE VENT - A/C; BG VENT RATE 14 set
[2019-06-18] MEDS: FUROSEMIDE 40MG/4ML VIAL IVP SCH ×2 (09:38→17:23)
[2019-06-18] MEDS: VANCOMYCIN 750 MG PREMIX 150 ML IV SCH (17:23)
[2019-06-18] MEDS: FAMOTIDINE 20MG TABLET PO SCH (19:54)
[2019-06-18] MEDS: ENOXAPARIN 30MG/0.3ML SYR SUBCUT SCH (19:55)
[2019-06-18] MEDS ORDERED: PROPOFOL 10MG/ML 100ML 100 ML IV PRN (23:45)
[2019-06-19] VITALS (47 sets, daily range): BP systolic 101–184; BP diastolic 73–124
[2019-06-19] MEDS: METHYLPREDNISOLONE SOD SUCC 40 MG/ML VIAL IV SCH ×2 (01:23→13:18)
[2019-06-19] MEDS: IPRATROPIUM/ALBUTEROL 0.5-3(2.5)MG/3ML NEB NEB SCH ×4 (02:01→20:25)
[2019-06-19] MEDS: METRONIDAZOLE 500MG TABLET PO SCH ×3 (05:05→21:27)
[2019-06-19] MEDS: PIPERACILLIN/TAZOBACTAM 2.25 G in DEXTROSE 5% WATER 50 ML IV SCH ×4 (05:05→22:59)
[2019-06-19 05:53] LABS: BASOPHILS % 0.3 % (0.0-2.0); HEMATOCRIT. 35.2 % (36.0-48.0); HEMOGLOBIN. 11.1 g/dL (12.0-16.0); LYMPHOCYTES % 7.2 % (20.0-50.0); MEAN CORPUSCULAR HEMOGLOBIN 25.6 pg (28.0-32.0); MEAN CORPUSCULAR VOLUME 80.9 fL (81.0-99.0); MONOCYTES % 8.4 % (2.0-8.0); NEUTROPHILS % 84.1 % (40.0-76.0); PLATELET 199 x1000/uL (130-400); RED BLOOD CELL COUNT 4.35 mill/uL (4.2-5.4); RED CELL DISTRIBUTION WIDTH 20.8 % (11.6-14.6)
[2019-06-19] MEDS ORDERED: CEFTRIAXONE 2 G in DEXTROSE 5% WATER 50 ML IV SCH (06:15)
[2019-06-19] MEDS: FUROSEMIDE 40MG/4ML VIAL IVP SCH ×2 (08:05→17:17)
[2019-06-19 08:20] LABS: BG BASE EXCESS -4.1 mmol/L (-2.0-2.0); BG CARBOXYHEMOGLOBIN 0.2 % (0.5-1.5); BG DEOXYHEMOGLOBIN 0.7 % (0.0-5.0); BG FRACTION INSPIRED OXYGEN 60; BG HCO3 ACT 19.2 mmol/L (22.0-26.0); BG METHEMOGLOBIN 0.3 % (0.0-1.5); BG OXYGEN SATURATION 99.3 % (92.0-98.5); BG OXYHEMOGLOBIN 98.8 % (94.0-97.0); BG PCO2 29.8 mmHg (35.0-45.0); BG PH 7.426 (7.350-7.450); BG PO2 180.7 mmHg (75.0-100.0); BG SAMPLE SITE RIGHT RADIAL; BG TIDAL VOLUME(mL) 450 mL; BG TOTAL HEMOGLOBIN 12.2 g/dL (12.0-18.0); BG VENT MODE VENT - A/C; BG VENT RATE 14 set
[2019-06-19 13:57] LABS: BG BASE EXCESS -2.8 mmol/L (-2.0-2.0); BG CARBOXYHEMOGLOBIN 0.4 % (0.5-1.5); BG DEOXYHEMOGLOBIN 1.2 % (0.0-5.0); BG FRACTION INSPIRED OXYGEN 60; BG HCO3 ACT 20.8 mmol/L (22.0-26.0); BG METHEMOGLOBIN 0.3 % (0.0-1.5); BG OXYGEN SATURATION 98.8 % (92.0-98.5); BG OXYHEMOGLOBIN 98.1 % (94.0-97.0); BG PCO2 32.6 mmHg (35.0-45.0); BG PH 7.423 (7.350-7.450); BG PO2 146.6 mmHg (75.0-100.0); BG PRESSURE SUPPORT 10; BG SAMPLE SITE RIGHT RADIAL; BG TOTAL HEMOGLOBIN 12.7 g/dL (12.0-18.0); BG VENT MODE VENT - CPAP
[2019-06-19] MEDS: HYDRALAZINE 20MG/ML VIAL IV PRN (17:52)
[2019-06-19] MEDS: FAMOTIDINE 20MG TABLET PO SCH (21:23)
[2019-06-19] MEDS: ENOXAPARIN 30MG/0.3ML SYR SUBCUT SCH (21:24)
[2019-06-19] MEDS: AMLODIPINE 5MG TABLET PO SCH (21:25)
[2019-06-20] VITALS (32 sets, daily range): BP systolic 106–168; BP diastolic 62–109
[2019-06-20] MEDS: HYDRALAZINE 20MG/ML VIAL IV PRN (00:44)
[2019-06-20] MEDS: IPRATROPIUM/ALBUTEROL 0.5-3(2.5)MG/3ML NEB NEB SCH ×4 (01:51→19:59)
[2019-06-20] MEDS: METHYLPREDNISOLONE SOD SUCC 40 MG/ML VIAL IV SCH ×2 (02:05→13:10)
[2019-06-20] MEDS: PIPERACILLIN/TAZOBACTAM 2.25 G in DEXTROSE 5% WATER 50 ML IV SCH ×4 (06:13→23:05)
[2019-06-20 06:18] LABS: HEMATOCRIT. 40.8 % (36.0-48.0); HEMOGLOBIN. 12.8 g/dL (12.0-16.0); MEAN CORPUSCULAR HEMOGLOBIN 25.5 pg (28.0-32.0); MEAN CORPUSCULAR VOLUME 81.6 fL (81.0-99.0); MEAN PLATELET VOLUME 10.1 fl (7.4-10.4); PLATELET 221 x1000/uL (130-400); RED BLOOD CELL COUNT 5.01 mill/uL (4.2-5.4); RED CELL DISTRIBUTION WIDTH 20.7 % (11.6-14.6)
[2019-06-20] MEDS ORDERED: POTASSIUM CHLORIDE INJ 40 MEQ in DEXT 5% WATER 250 ML IV SCH (09:00)
[2019-06-20] MEDS: FUROSEMIDE 40MG/4ML VIAL IVP SCH (09:26)
[2019-06-20] MEDS: AMLODIPINE 5MG TABLET PO SCH ×2 (09:27→21:11)
[2019-06-20 09:32] LABS: PLATELET ESTIMATE NORMAL
[2019-06-20] MEDS ORDERED: CARVEDILOL 3.125 MG TABLET PO SCH (10:00)
[2019-06-20 12:39] LABS: BG BASE EXCESS 1.8 mmol/L (-2.0-2.0); BG CARBOXYHEMOGLOBIN 0.2 % (0.5-1.5); BG DEOXYHEMOGLOBIN 7.9 % (0.0-5.0); BG FRACTION INSPIRED OXYGEN 21; BG HCO3 ACT 24.9 mmol/L (22.0-26.0); BG METHEMOGLOBIN 0.3 % (0.0-1.5); BG OXYGEN SATURATION 92.1 % (92.0-98.5); BG OXYHEMOGLOBIN 91.6 % (94.0-97.0); BG PCO2 34.4 mmHg (35.0-45.0); BG PH 7.478 (7.350-7.450); BG PO2 62.4 mmHg (75.0-100.0); BG SAMPLE SITE RIGHT RADIAL; BG VENT MODE ROOM AIR
[2019-06-20] MEDS ORDERED: CARVEDILOL 3.125 MG TABLET PO NR (13:15)
[2019-06-20] MEDS ORDERED: KCL 20MEQ/100ML PREMIX 100 ML IV SCH (16:00)
[2019-06-20] MEDS: ENOXAPARIN 30MG/0.3ML SYR SUBCUT SCH (21:10)
[2019-06-20] MEDS: FAMOTIDINE 20MG TABLET PO SCH (21:11)
[2019-06-20] MEDS: CARVEDILOL 6.25 MG TABLET PO SCH (21:11)
[2019-06-21] VITALS (10 sets, daily range): BP systolic 100–154; BP diastolic 74–116
[2019-06-21] MEDS: IPRATROPIUM/ALBUTEROL 0.5-3(2.5)MG/3ML NEB NEB SCH (00:48)
[2019-06-21] MEDS: METHYLPREDNISOLONE SOD SUCC 40 MG/ML VIAL IV SCH ×2 (03:02→15:27)
[2019-06-21] MEDS: PIPERACILLIN/TAZOBACTAM 2.25 G in DEXTROSE 5% WATER 50 ML IV SCH ×3 (05:07→17:30)
[2019-06-21 06:45] LABS: BASOPHILS % 0.4 % (0.0-2.0); EOSINOPHILS % 1.2 % (0.0-5.0); HEMATOCRIT. 38.2 % (36.0-48.0); HEMOGLOBIN. 11.8 g/dL (12.0-16.0); LYMPHOCYTES % 18.2 % (20.0-50.0); MEAN CORPUSCULAR HEMOGLOBIN 25.2 pg (28.0-32.0); MEAN CORPUSCULAR VOLUME 81.4 fL (81.0-99.0); MEAN PLATELET VOLUME 9.8 fl (7.4-10.4); NEUTROPHILS % 69.2 % (40.0-76.0); PLATELET 206 x1000/uL (130-400); RED CELL DISTRIBUTION WIDTH 21.1 % (11.6-14.6)
[2019-06-21] MEDS: AMLODIPINE 5MG TABLET PO SCH (08:04)
[2019-06-21] MEDS: CARVEDILOL 6.25 MG TABLET PO SCH (08:05)
[2019-06-21] MEDS ORDERED: FUROSEMIDE 40MG/4ML VIAL IVP SCH (09:00)
[2019-06-21] MEDS ORDERED: POTASSIUM CHLORIDE 20MEQ TABLET SR PO SCH (10:00)
[2019-06-21] MEDS ORDERED: MORPHINE SULFATE 2 MG/ML CPJ (NOT FOR IM USE) IV PRN (11:00)
[2019-06-21] MEDS ORDERED: DILTIAZEM HCL 30MG TABLET PO SCH (18:00)
[2019-06-21] MEDS: CLONIDINE 0.1MG TABLET PO PRN (18:21)
[2019-06-21] MEDS ORDERED: ENOXAPARIN 40MG/0.4ML SYR SUBCUT SCH (21:00)
[2019-06-22] MEDS ORDERED: FUROSEMIDE 40MG TABLET PO SCH (09:00)
[2019-06-22] MEDS ORDERED: NEBIVOLOL HCL 5 MG TABLET PO SCH (09:00)
== END 2019-06-21 19:00 | disposition hospice, home (50) | DRG 208 ==
LOC: ER 06:37 → 5WST 08:27 → ENRESERV 16:17 → 7WST 21:52 → MICUSO 06-16 14:15 → CVICU 06-17 15:37 → 3WST 06-20 18:59
PROVIDERS: ADMIT Internal Medicine; ATTEND Internal Medicine
PROC: 5A1945Z Respiratory Ventilation, 24-96 Consecutive Hours (ICD-10-PCS; principal; 2019-06-16)
PROC: 0BH17EZ Insertion of Endotracheal Airway into Trachea, Via Natural or Artificial Opening (ICD-10-PCS; 2019-06-16)
DX: J96.01 Acute respiratory failure with hypoxia (principal); J18.9 Pneumonia, unspecified organism; J44.1 Chronic obstructive pulmonary disease with (acute) exacerbation; I13.0 Hypertensive heart and chronic kidney disease with heart failure and stage 1 through stage 4 chronic kidney disease, or unspecified chronic kidney disease; N39.0 Urinary tract infection, site not specified; J44.0 Chronic obstructive pulmonary disease with (acute) lower respiratory infection; I42.9 Cardiomyopathy, unspecified; I47.1 Supraventricular tachycardia; N18.9 Chronic kidney disease, unspecified; E87.5 Hyperkalemia; K74.60 Unspecified cirrhosis of liver; I27.20 Pulmonary hypertension, unspecified; B19.20 Unspecified viral hepatitis C without hepatic coma; B96.4 Proteus (mirabilis) (morganii) as the cause of diseases classified elsewhere; E87.6 Hypokalemia; I50.9 Heart failure, unspecified; Z66 Do not resuscitate; R16.0 Hepatomegaly, not elsewhere classified; R19.7 Diarrhea, unspecified; R73.9 Hyperglycemia, unspecified; R11.2 Nausea with vomiting, unspecified; R74.0 Nonspecific elevation of levels of transaminase and lactic acid dehydrogenase [LDH]; Z20.828 Contact with and (suspected) exposure to other viral communicable diseases; Z60.2 Problems related to living alone; I45.81 Long QT syndrome; Z99.81 Dependence on supplemental oxygen; Z95.810 Presence of automatic (implantable) cardiac defibrillator; Z86.73 Personal history of transient ischemic attack (TIA), and cerebral infarction without residual deficits; Z91.14 Patient's other noncompliance with medication regimen
CPT/HCPCS: 36415; 36600; 71045; 74018; 78580; 80048; 80053; 80305; 81003; 82375; 82550; 82553; 82805; 82962; 83615; 83735; 83880; 84132; 84145; 84478; 84484; 85025; 85379; 86705; 86709; 86803; 87077; 87186; 87340; 87635; 92610; 93005; 97162; 97530; 99285; J0360; J0696; J1650; J1940; J1956; J2270; J2543; J2704; J2920; J2930; J3370; J3480; J3490; J7060